=== PATIENT | male | born 1990 | race Caucasian/White ===

== ENCOUNTER → 2017-11-15 | Outpatient (CLI) | payer OTHER ==
[~2017-11-15] VITALS: Ht 172.7 cm; Wt 97.5 kg
[2017-11-15 14:41] VITALS: BP_SYST 152; BP_SYST 154; BP_DIAS 100; BP_DIAS 101; PULSE 102; PULSE 90; Ht 172.7 cm; Wt 97.5 kg
== END | disposition home or self-care (01) ==
LOC: C.NEUR 14:00
PROVIDERS: ATTEND Physician Assistant Medical
DX: G47.30 Sleep apnea, unspecified (principal)

== ENCOUNTER → 2017-12-01 | Outpatient (CLI) | payer OTHER ==
--- NOTE | 2017-12-02 06:28 | PAP/PSG TECHNICIAN REPORT ---
[facility] Cardroom Attendant Polysomnogram Report Study name: None Report date: 12/02/2017 Study date: 12/01/2017 Referring Physician: DR. CADE Name: ALEK CHEUNG Interpreting Physician: Roberto Cade M.D. Date of : 1990 Cardroom Attendant: Eliceo Tinoco RPSGT. Sex: Male Age: 27 StudyType: PSG PAP Weight: 215 lbs 16.5 inches Height: 27 years, Height 5' 8" Neck Circum: BMI: 32.69 Medications: OMEPRAZOLE 20 MG Patient History PATIENT HAS HISTORY OF DAYTIME SLEEPINESS, SNORING, FATIGUE AND GERD. HE RECENTLY HAD A HOME SLEEP STUDY DONE AND WAS POSITIVE WITH MILD ERIK. HE IS HERE TODAY FOR A CPAP TITRATION. ESS = 9 RM 5 Parameters Monitored NPSG: E1-M2, E2-M1, Fp1-M2, Fp2-M1, F3-M2, F4-M2, F4-M1, C3-M2, C4-M2, C4-M1, O1-M2, O2-M2, O2-M1, T3-M2, T4-M1, P3-M2, P4-M1, CHIN1, CHIN2, HR, EKG, Legs, PFLOW, SNOR, FLOW, CFLOW, Tidal Volume, THOR, ABDO, SpO2, PLTH, CPRESS, ETCO2 Wave, ETCO2, pH Sleep Architecture Sleep Stages Time at Lights Off 11:00:09 PM STAGES Time (min.) TST (%) Time at Lights On 5:46:39 AM Wake 49.0 -- Total Recording Time (TRT) 407.00 min. N1 19.5 5 Total Sleep Period (TSP) 394.0 min. N2 197.5 55 Total Sleep Time (TST) 357.5min. N3 80.0 22 Awake Time 49.5 min. REM 60.5 17 Wake after Sleep Onset 39.0 min. Sleep Efficiency (SE) 88 % Sleep Onset Latency (JAVY) 10.0 min. Number of Stage 1 Shifts None Awakenings 22 Stage Changes 88 Number of REM periods 5 REM 60.5 17 REM Latency 160.0 min. NREM 297.0 83 Body Position Analysis Supine Right Left Side Prone Vertical Total Sleep Time (min.) 262.1 140.4 0.0 140.42 0.0 0.0 Total Sleep Time (%) 61% 39% 0% 39 0% N/A% Total Sleep Time REM (min.) 28.0 32.5 0.0 None 0.0 0.0 Total Sleep Time NREM (min.) 189.1 107.9 0.0 None 0.0 0.0 Intermittent Wake (min.) 45.0 4.0 0.0 None 0.0 0.0 Total Sleep Period (%) 63% None None None None None Arousals Myoclonus (PLM) * Events Count Index Events Count Index Spontaneous 27 5 Events Awake (PLMW) 63 77.1 Respiratory 7 1.0 Events Asleep w/ Arousal (PLMA) 6 1.0 PLM 6 1 Events Asleep w/o Arousal (PLMS) 37 6.2 Snoring 3 1 Total Asleep 43 7.2 Total 43 7 Total 106 16 Respiratory Analysis * CA OA MA CH H RERA Total Count 0 0 0 0 23 5 23 Index 0.0 0.0 0.0 0 3.9 1 4.7 Mean Duration 0.0 0.0 0.0 0.00 18.1 14.6 17.5 Longest Duration 0.0 0.0 0.0 0.00 0.0 17.4 24.5 Respiratory Event Summary Total Supine ~Supine Right Left Prone REM NREM Apneas Count 0 0 0 0 N/A N/A 0 0 Index 0.0 0 0 0.0 N/A N/A 0 0 Hypopneas (4% Desat) Count 23 15 8 8 N/A N/A 9 14 Index 3.9 4.1 3 3.4 N/A N/A 8.9 2.8 Apneas & All Hypopneas Count 23 15 8 8 N/A N/A 9 14 Index 3.9 4 3 3 N/A N/A 8.9 2.8 Respiratory Events (Health Data Analyst+All Hyp+RERA) Count 23 20 8 8 N/A N/A 9 14 Index 4.7 6 3 3.4 N/A N/A 8.9 3.8 Respiratory Related Arousal Count 7 20 0 0 N/A N/A 0 6 Index 1.0 2 0 0 N/A N/A 0 1 Snoring Analysis Supine Right Left Prone REM NREM Total Snore duration 2.6 min Snores count 125 5 N/A N/A 1 129 130 Snore mean duration 1.2 Sec Snores index 35 2 N/A N/A 1.0 26.1 21.8 TST with snoring (%) 0.7% Desaturation Event Summary: Minimum %SpO2 Event Count Mean/Min/Max Duration(sec.) Desaturation Index % Time In Bed > 90 35 29.2 / 6.5 / 60.0 5.4 95.0 86 - 90 2 8.3 / 6.5 / 10.0 5.9 5.0 81 - 85 0 N/A 0.0 0.0 76 - 80 0 N/A 0.0 0.0 71 - 75 0 N/A 0.0 0.0 66 - 70 0 N/A 0.0 0.0 61 - 65 0 N/A 0.0 0.0 56 - 60 0 N/A 0.0 0.0 51 - 55 0 N/A 0.0 0.0 < 50 0 N/A 0.0 0.0 Total REM NREM Awake <50% 0.0 min. 0.0 min. 0.0 min. 0.0 min. 51 - 60% 0.0 min. 0.0 min. 0.0 min. 0.0 min. 61 - 70% 0.0 min. 0.0 min. 0.0 min. 0.0 min. 71 - 80% 0.0 min. 0.0 min. 0.0 min. 0.0 min. 81 - 90% 20.2 min. 1.1 min. 13.4 min. 5.7 min. 91 - 100% 386.2 min. 59.4 min. 283.5 min. 43.3 min. Average 93 93 92 92 Minimum SpO2 87 89 87 88 Desaturation Event Index 5.2 9.9 3.6 8.6 # Desat. Events below 89% 2 N/A 2 0 Time(%) with Saturation below 89% 0.2 0.0 0.1 0.0 Time(min.) with Saturation below 89% 0.7 0.0 0.5 0.2 Time (mins) REM (mins) NREM (mins) % of TST SpO2 Below 90% 20 6 N14 0.9 SpO2 Below 88% 0 0 0 0 Heart Rate Analysis Min (bpm) Max (bpm) Average (bpm) Awake 61 104 74 NREM 58 93 68 REM 61 90 72 Overall 58 93 69 Supplemental O2 Values Minimum O2 level: None Value Start Time End Time Cardroom Attendant Comments Mr. Cheung slept in the right and supine positions. No cardiac arrhythmia noted. Leg movements noted. No bruxism noted. CPAP was initiated at +4 CMH2O and up-titrated to an optimal level of +9 CMH2O, which nearly eliminated all respiratory events and snoring. A Resmed Airfit F20 size small full face mask was used during titration Mr. Cheung awoke to use the restroom 0 times during the night. Mr. Cheung stated I slept as well as I do when I am in my own bed. The final report will be interpreted and signed by a sleep physician. The completed physician report will then be placed in the patient medical record. Therapy Event: Therapy (cm H20) 4 5 6 7 8 9 Total Time at Pressure (min.) 17.4 18.7 22.1 67.4 62.3 218.6 TST at Pressure (min.) 6.9 17.7 21.6 39.9 62.3 209.1 # Periods 1 1 1 1 1 1 Sleep Onset (min.) 10.0 0.0 0.0 0.0 0.0 0.0 REM Onset (min.) N/A N/A N/A N/A 44.4 0.0 Sleep Efficiency % 39 94 97 59 100 95 Wakefulness (%) 60.4 5.3 2.3 40.8 0.0 4.3 Wakefulness (min.) 10.5 1.0 0.5 27.5 0.0 9.5 NREM 1 (%) 11.5 8.0 4.5 11.9 0.0 3.2 NREM 1 (min.) 2.0 1.5 1.0 8.0 0.0 7.0 NREM 2 (%) 28.1 86.7 81.9 39.9 33.6 50.5 NREM 2 (min.) 4.9 16.2 18.1 26.9 20.9 110.5 NREM 3 (%) 0.0 0.0 11.3 7.4 37.7 22.4 NREM 3 (min.) 0.0 0.0 2.5 5.0 23.5 49.0 REM (%) 0.0 0.0 0.0 0.0 28.7 19.5 REM (min.) 0.0 0.0 0.0 0.0 17.9 42.6 # Arousals 5 4 4 13 1 16 Arousal Index 43.5 13.5 11.1 19.6 1.0 4.6 # Snore 1 2 42 74 2 9 Snore Index 8.7 6.8 116.8 111.3 1.9 2.6 AHI 26.1 6.8 11.1 3.0 7.7 1.1 AHI Supine 26.1 6.8 11.1 3.2 N/A 1.8 AHI Non-Supine N/A N/A N/A 0.0 7.7 0.0 NREM AHI 26.1 6.8 11.1 3.0 2.7 0.4 REM AHI N/A N/A N/A N/A 20.1 4.2 RDI 34.8 10.2 13.9 6.0 7.7 1.1 # Obstructive 0 0 0 0 0 0 # Central Ap 0 0 0 0 0 0 # Mixed 0 0 0 0 0 0 # Hypopneas 3 2 4 2 8 4 RERAS 1 1 1 2 0 0 Total Respiratory Events 4 3 5 4 8 4 Time Below SpO2 89.00% (min.) 0.3 0.0 0.2 0.0 0.0 0.0 Mean NREM SpO2 (%) 91 92 92 93 93 93 Mean REM SpO2 (%) N/A N/A N/A N/A 93 93 Mean Sleep SpO2 (%) 91 92 92 93 93 93 Min NREM SpO2 (%) 88 89 87 89 89 89 Min REM SpO2 (%) N/A N/A N/A N/A 89 89 Position Supine (min.) 6.9 17.7 21.6 37.5 0.0 133.4 Position Non-supine (min.) 0.0 0.0 0.0 2.4 62.3 75.7 LM Index Sleep 52.3 20.3 8.3 10.5 5.8 4.3 LM Index NREM 52.3 20.3 8.3 10.5 2.7 2.5 LM Index REM N/A N/A N/A N/A 13.4 11.3 Mean Heart Rate (bpm) 70 69 69 68 71 69 Min Heart Rate (bpm) 63 62 62 58 61 58
--- NOTE | 2017-12-05 08:01 | POLYSOMNOGRAPH REPORT ---
CLINICAL DATA: A 27-year-old male with BMI of 32.7 referred by Urmila Moreno and myself for a CPAP study. He has history of daytime sleepiness, snoring, and fatigue. He had a home sleep apnea test which showed mild ERIK. His [place] sleepiness score is 9/24. SLEEP ARCHITECTURE: Total sleep period was 394 minutes. Total sleep time was 357.5 minutes divided between 297 minutes of non-REM sleep and 60.5 minutes of REM sleep. Sleep latency was 10 minutes. REM latency was 160 minutes. Sleep efficiency was 88%. Wake after sleep onset was 39 minutes. Sleep consisted of stage N1 5%, stage N2 55%, stage N3 22%, and REM 17%. AROUSAL DATA: 43 arousals were recorded for an index of 7 per hour. 27 were spontaneous. PLM DATA: 43 limb movements during sleep were noted for an index of 7.2 per hour with an arousal index of 1 per hour. RESPIRATORY DATA: The AHI was 3.9. There were 22 hypopneic episodes with mean duration of 18 seconds. OXIMETRY DATA: No significant hypoxemia was seen. Oxygen anastasia was 87%. Mean saturation was 93%. Time below 88% was less than 1 minute. EKG: Heart rates ranged from 58-93 beats per minute. No arrhythmias were noted. FUNDRAISING SALE REPRESENTATIVE'S COMMENTS AND TREATMENT SUMMARY: The patient slept in the right, and supine position. A ResMed AirFit F20 size small full face mask was used. The patient was titrated up to his final pressure of 9 cm of water pressure. At that pressure setting, he slept for 209 minutes with an AHI of 1. IMPRESSION: Obstructive sleep apnea corrected with CPAP 9 cm water pressure using a ResMed AirFit F20 size small full facemask. RECOMMENDATIONS: The patient will be started on the above noted treatment regimen and seen back in followup within 90 days to document efficiency and compliance. JUANCARLOS
== END | disposition home or self-care (01) ==
LOC: C.NEUR 21:00
PROVIDERS: ATTEND Physician Assistant Medical
DX: G47.30 Sleep apnea, unspecified (principal)